=== PATIENT | male | born 1995 | race Caucasian/White ===

== ENCOUNTER 2023-04-03 12:38 | Emergency (ER) | payer BC ==
[2023-04-03 12:48] VITALS: BP 129/69; PULSE 64; RESP 16; TEMP 98.8; BMI 27.7
== END 2023-04-03 13:36 | disposition home or self-care (01) ==
LOC: FER 12:38
DX: K46.9 Unspecified abdominal hernia without obstruction or gangrene (principal)
CPT/HCPCS: 99282-25